=== PATIENT | female | born 1990 | race African-American/Black ===

== ENCOUNTER 2018-11-29 11:12 | Emergency (ER) | payer SELFPAY ==
--- NOTE | 2018-11-29 13:05 | EDPHYS ---
Physician Documentation [facility] Name: Alicia Torres Age: 28 yrs Sex: Female : 1990 Arrival Date: 11/29/2018 Time: 11:15 Bed 9 Private MD: ED Physician Higinio Finch HPI: 11/29 12:26 This 28 yrs old Black Female presents to ER via Ambulatory with complaints of Needs snw work release. 12:26 Onset: The symptoms/episode began/occurred suddenly, 4 day(s) ago, and improved. snw Associated signs and symptoms: The patient has no apparent associated signs or symptoms. Modifying factors: The patient symptoms are alleviated by rest, time. It is unknown whether or not the patient has had similar symptoms in the past. The patient has not recently seen a physician. pt request work excuse to return . 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 - Social history:: Smoking status: Patient/guardian denies using tobacco. - Ebola Screening: : No symptoms or risks identified at this time. ROS: 12:25 Constitutional: Negative for fever, chills, and weight loss, Eyes: Negative for injury, snw pain, redness, and discharge, Neck: Negative for injury, pain, and swelling, Cardiovascular: Negative for chest pain, palpitations, and edema, Respiratory: Negative for shortness of breath, cough, wheezing, and pleuritic chest pain, Abdomen/GI: Negative for abdominal pain, nausea, vomiting, diarrhea, and constipation, Back: Negative for injury and pain, : Negative for injury, bleeding, discharge, and swelling, MS/Extremity: Negative for injury and deformity, Skin: Negative for injury, rash, and discoloration, Neuro: Negative for headache, weakness, numbness, tingling, and seizure. 12:25 ENT: Positive for sore throat. Exam: 12:25 Constitutional: This is a well developed, well nourished patient who is awake, alert, snw and in no acute distress. Head/Face: Normocephalic, atraumatic. Eyes: Pupils equal round and reactive to light, extra-ocular motions intact. Lids and lashes normal. Conjunctiva and sclera are non-icteric and not injected. Cornea within normal limits. Periorbital areas with no swelling, redness, or edema. ENT: Nares patent. No nasal discharge, no septal abnormalities noted. Tympanic membranes are normal and external auditory canals are clear. Oropharynx with redness, no swelling, or masses, exudates, or evidence of obstruction, uvula midline. Mucous membranes moist. Neck: Trachea midline, no thyromegaly or masses palpated, and no cervical lymphadenopathy. Supple, full range of motion without nuchal rigidity, or vertebral point tenderness. No Meningismus. Chest/axilla: Normal chest wall appearance and motion. Nontender with no deformity. No lesions are appreciated. Cardiovascular: Regular rate and rhythm with a normal S1 and S2. No gallops, murmurs, or rubs. Normal PMI, no JVD. No pulse deficits. Respiratory: Lungs have equal breath sounds bilaterally, clear to auscultation and percussion. No rales, rhonchi or wheezes noted. No increased work of breathing, no retractions or nasal flaring. Abdomen/GI: Soft, non-tender, with normal bowel sounds. No distension or tympany. No guarding or rebound. No evidence of tenderness throughout. Back: No spinal tenderness. No costovertebral tenderness. Full range of motion. Skin: Warm, dry with normal turgor. Normal color with no rashes, no lesions, and no evidence of cellulitis. MS/ Extremity: Pulses equal, no cyanosis. Neurovascular intact. Full, normal range of motion. Neuro: Awake and alert, GCS 15, oriented to person, place, time, and situation. Cranial nerves II-XII grossly intact. Motor strength 5/5 in all extremities. Sensory grossly intact. Cerebellar exam normal. Normal gait. Psych: Awake, alert, with orientation to person, place and time. Behavior, mood, and affect are within normal limits. Vital Signs: 11:49 BP 99 / 63; Pulse 73; Resp 18; Temp 97.5; Pulse Ox 100% on R/A; Weight 53.52 kg; Height ph 5 ft. 3 in. (160.02 cm); Pain 0/10; 11:49 Body Mass Index 20.90 (53.52 kg, 160.02 cm) ph MDM: 11:48 Patient medically screened. snw 13:05 Data reviewed: vital signs, nurses notes. Data interpreted: Pulse oximetry: on room air snw is 100 %. Interpretation: normal. Counseling: I had a detailed discussion with the patient and/or guardian regarding: the historical points, exam findings, and any diagnostic results supporting the discharge/admit diagnosis, lab results, the need for outpatient follow up, to return to the emergency department if symptoms worsen or persist or if there are any questions or concerns that arise at home. Awaiting: strep screen result, pt needs to leave, results delayed. Will call pt if + for abx administration. 11/29 12:12 Order name: Strep snw Administered Medications: No medications were administered Disposition: 19:02 Co-signature as Attending Physician, Higinio Finch MD I agree with the assessment and kdr plan of care. Disposition: 11/29/18 13:04 Discharged to Home. Impression: Acute pharyngitis. - Condition is Stable. - Discharge Instructions: Pharyngitis, Rehydration, Adult. - Work release form, Medication Reconciliation Form, Thank You Letter, Antibiotic Education, Prescription Opioid Use form. - Follow up: Private Physician; When: 2 - 3 days; Reason: Recheck today's complaints, Continuance of care, Re-evaluation by your physician. Follow up: Emergency Department; When: As needed; Reason: Worsening of condition. Signatures: Dispatcher [employer] EDNY Higinio Finch MD MD [facility] Mary Jo Loya, ELECTRICIAN MARINE-C ELECTRICIAN MARINE-Chely Eng, RN RN Misty Cam RN RN ph Corrections: (The following items were deleted from the chart) 13:13 13:04 11/29/2018 13:04 Discharged to Home. Impression: Acute pharyngitis. Condition is iw Stable. Forms are Medication Reconciliation Form, Thank You Letter, Antibiotic Education, Prescription Opioid Use. Follow up: Private Physician; When: 2 - 3 days; Reason: Recheck today's complaints, Continuance of care, Re-evaluation by your physician. Follow up: Emergency Department; When: As needed; Reason: Worsening of condition. snw
--- NOTE | 2018-11-29 13:05 | ER ---
Nurse's Notes [facility] Name: Alicia Torres Age: 28 yrs Sex: Female : 1990 Arrival Date: 11/29/2018 Time: 11:15 Bed 9 Private MD: Diagnosis: Acute pharyngitis Presentation: 11/29 11:45 Presenting complaint: Patient states: Had strep over the weekend, I treated it myself ph at home and I'm feeling better, my job just wanted me to come get checked out.". Transition of care: patient was not received from another setting of care. Onset of symptoms was November 29, 2018. Risk Assessment: Do you want to hurt yourself or someone else? Patient reports no desire to harm self or others. Initial Sepsis Screen: Does the patient meet any 2 criteria? No. Patient's initial sepsis screen is negative. Does the patient have a suspected source of infection? No. Patient's initial sepsis screen is negative. Care prior to arrival: None. 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 - Social history:: Smoking status: Patient/guardian denies using tobacco. - Ebola Screening: : No symptoms or risks identified at this time. Screenin:13 Abuse screen: Denies threats or abuse. Denies injuries from another. Nutritional iw screening: No deficits noted. Tuberculosis screening: No symptoms or risk factors identified. Fall Risk None identified. Assessment: 11:50 General: Appears in no apparent distress. comfortable, slender, well groomed, Behavior ph is calm, cooperative, appropriate for age, Denies fever, feeling ill. Pain: Denies pain. Neuro: Level of Consciousness is awake, alert, obeys commands, Oriented to person, place, time, situation. Cardiovascular: Capillary refill < 3 seconds in bilateral fingers Patient's skin is warm and dry. Respiratory: Airway is patent Respiratory effort is even, unlabored. GI: No signs and/or symptoms were reported involving the gastrointestinal system. Derm: Skin is intact, is healthy with good turgor, Skin is pink, warm \\T\\ dry. Musculoskeletal: Circulation, motion, and sensation intact. Range of motion: intact in all extremities. Vital Signs: 11:49 BP 99 / 63; Pulse 73; Resp 18; Temp 97.5; Pulse Ox 100% on R/A; Weight 53.52 kg; Height ph 5 ft. 3 in. (160.02 cm); Pain 0/10; 11:49 Body Mass Index 20.90 (53.52 kg, 160.02 cm) ph ED Course: 11:15 Patient arrived in ED. as 11:28 Mary Jo Loya F[facility]-C [facility]. snw 11:28 Higinio Finch MD is Attending Physician. snw 11:32 Angelina Lujan, RN is Primary Nurse. aj 11:46 Triage completed. ph 11:50 Arm band placed on Patient placed in an exam room. ph 11:51 Misty Cam RN is Primary Nurse. ph 13:12 No provider procedures requiring assistance completed. Patient did not have IV access iw during this emergency room visit. 13:13 Patient has correct armband on for positive identification. iw Administered Medications: No medications were administered Outcome: 13:04 Discharge ordered by . snw 13:12 Discharged to home ambulatory, with family. iw 13:12 Condition: good 13:12 Discharge instructions given to patient, Instructed on discharge instructions, follow up and referral plans. Demonstrated understanding of instructions, follow-up care. 13:13 Patient left the ED. iw Signatures: Angelina Lujan, LIBERTAD RN Mary Jo Salgado FNP-C FNP-Deepthi Johns as Chely Salinas RN RN Misty Cam RN RN ph
== END 2018-11-29 13:13 | disposition home or self-care (01) ==
LOC: ER 11:12
DX: J02.9 Acute pharyngitis, unspecified (principal)
CPT/HCPCS: 87070; 87081; 99281

== ENCOUNTER 2019-01-03 17:33 | Emergency (ER) | payer SELFPAY ==
--- OUTSIDE RECORDS SUMMARY | 2019-01-03 17:36 | XMS REPORT ---
:1990 [facility] Address [address] [place] [address] [address] [place] [address] Care Team Providers Name Role Phone Unavailable Unavailable Unavailable Problems This patient has no known problems. Allergies, Adverse Reactions, Alerts This patient has no known allergies or adverse reactions. Medications This patient has no known medications.
--- NOTE | 2019-01-03 18:29 | RAD REPORT ---
EXAM DESCRIPTION: CT - Head Brain Wo Cont - 01/03/2019 6:03 pm CLINICAL HISTORY: Headache COMPARISON: None. TECHNIQUE: Computed axial tomography of the head was obtained. IV contrast was not requested. All CT scans are performed using dose optimization technique as appropriate and may include automated exposure control or mA/KV adjustment according to patient size. FINDINGS: An intracranial bleed is not seen . The ventricles are normal in caliber. No extra-axial fluid collection is noted. Fluid within the sinuses/ mastoids is not seen. IMPRESSION: No acute intracranial abnormality is seen. If patient's symptoms persist MRI of the bra in would be recommended.
[2019-01-03 18:31] LABS: Absolute Lymphocytes (CBC) 2.2 K/uL (0.7-4.9); Basophils % 0.4 % (0-1.3); Hematocrit 41.7 % (36.0-45.0); Lymphocytes % 25.2 % (15.3-44.8); MPV 9.1 fL (7.6-11.3); RBC Red Blood Cell Count 4.71 M/uL (3.86-4.86)
[2019-01-03] MEDS ORDERED: METOCLOPRAMIDE 10 MG/2mL INJ ONE (18:41)
[2019-01-03] MEDS ORDERED: DIPHENHYDRAMINE 50 MG/ML VIAL ONE (18:41)
[2019-01-03] MEDS ORDERED: NA CHLORIDE 0.9% 1,000 ML ONE (18:41)
[2019-01-03 18:45] LABS: ALT/SGPT 14 U/L (12-78); AST/SGOT 15 U/L (15-37); Albumin 3.9 g/dL (3.4-5.0); Alkaline Phosphatase 57 U/L (45-117); BUN Blood Urea Nitrogen 13 mg/dL (7-18); Bicarbonate 28 mmol/L (21-32); Bilirubin Total 0.5 mg/dL (0.2-1.0); Glucose Level 69 mg/dL (74-106); Potassium 3.6 mmol/L (3.5-5.1); Protein, Total 8.2 g/dL (6.4-8.2); Sodium Level 140 mmol/L (136-145)
[2019-01-03 18:55] LABS: Urine Blood NEGATIVE (NEG); Urine Glucose NEGATIVE (NEG); Urine Protein NEGATIVE (NEG)
--- NOTE | 2019-01-03 20:11 | RAD REPORT ---
EXAM DESCRIPTION: CTHead angio01/03/2019 7:45 pm CLINICAL HISTORY: TIA/headache COMPARISON: None TECHNIQUE: CT angiogram of the head was obtained. 3D MIPS reconstruction performed. All CT scans are performed using dose optimization technique as appropriate and may include automated exposure control or mA/KV adjustment according to patient size. FINDINGS: The basilar, internal carotid, anterior cerebral, middle cerebral and posterior cerebral a rteries are normal caliber. An aneurysm is not seen. origin right posterior cerebral artery A significant stenosis is not noted. IMPRESSION: Unremarkable CT angiogram head.
[2019-01-03] MEDS ORDERED: KETOROLAC 30 MG/ML INJ ONE (20:46)
[2019-01-03] MEDS ORDERED: dexAMETHasone 10 MG/ML VIAL ONE (20:46)
--- NOTE | 2019-01-03 21:09 | EDPHYS ---
Physician Documentation [facility] Name: Alicia Torres Age: 28 yrs Sex: Female : 1990 Arrival Date: 01/03/2019 Time: 17:35 Bed 13 Private MD: ED Physician Sridhar Angelo HPI: 01/03 17:44 This 28 yrs old Black Female presents to ER via Ambulatory with complaints of Body jmm Aches, Headache. 17:44 The patient complains of pain to the forehead and right uatsdin. Onset: The jmm symptoms/episode began/occurred gradually, 1 day(s) ago. Associated signs and symptoms: Pertinent negatives: fever, neck stiffness. This is a 28 year female with no chronic medical conditions that presents to the Ed with complaints of right sided headache which she awoke with yesterday. Patient states the pain has been constant. Patient is sensitive to light. Denies fever complains of body aches. . 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 - Social history:: Smoking status: Patient/guardian denies using tobacco. - Ebola Screening: : No symptoms or risks identified at this time. ROS: 17:44 Eyes: Negative for injury, pain, redness, and discharge, Cardiovascular: Negative for jmm chest pain, palpitations, and edema, Respiratory: Negative for shortness of breath, cough, wheezing, and pleuritic chest pain. 17:44 Abdomen/GI: Negative for abdominal pain, nausea, vomiting, diarrhea, and constipation, Back: Negative for injury and pain. 17:44 Constitutional: Positive for body aches, chills. 17:44 Neuro: Positive for headache. 17:44 All other systems are negative. Exam: 17:44 Constitutional: This is a well developed, well nourished patient who is awake, alert, jmm and in no acute distress. Head/Face: atraumatic. Eyes: EOMI, no conjunctival erythema appreciated ENT: Moist Mucus Membranes Neck: Trachea midline, Supple Chest/axilla: Normal chest wall appearance and motion. Cardiovascular: Regular rate and rhythm. No edema appreciated Respiratory: Normal respirations, no respiratory distress appreciated Abdomen/GI: Non distended, soft Back: Normal ROM Skin: General appearance color normal MS/ Extremity: Moves all extremities, no obvious deformities appreciated, no edema noted to the lower extremities Neuro: Awake and alert, normal gait Psych: Behavior is normal, Mood is normal, Patient is cooperative and pleasant Vital Signs: 17:42 BP 108 / 78; Pulse 82; Resp 16; Temp 98.4; Pulse Ox 98% on R/A; Weight 40.82 kg; Height la1 5 ft. 3 in. (160.02 cm); 18:40 BP 107 / 76; Pulse 52; Resp 15; Pulse Ox 98% on R/A; Pain 10/10; rb1 19:00 BP 112 / 74; Pulse 70; Resp 16; Pulse Ox 97% on R/A; jb4 21:00 BP 106 / 75; Pulse 72; Resp 16; Pulse Ox 100% on R/A; jb4 17:42 Body Mass Index 15.94 (40.82 kg, 160.02 cm) la1 MDM: 17:44 Patient medically screened. [facility] 20:34 Data reviewed: vital signs, nurses notes. [facility] 21:05 Data reviewed: lab test result(s), radiologic studies, CT scan. Counseling: I had a [facility] detailed discussion with the patient and/or guardian regarding: the historical points, exam findings, and any diagnostic results supporting the discharge/admit diagnosis, lab results, radiology results, the need for outpatient follow up, to return to the emergency department if symptoms worsen or persist or if there are any questions or concerns that arise at home. ED course: Patient is alert and non toxic in appearance. Headache is improved in the ED. CT imaging is negative. Patient's neck is supple. I do not suspect meningitis or SAH. Patient is advised to follow up with neuro for reevaluation of headaches. Patient is otherwise given strict return precautions. Patient understood and agrees with the plan of care. . 01/03 17:50 Order name: CBC with Diff; Complete Time: 18:50 [facility] 01/03 17:50 Order name: CMP; Complete Time: 18:50 [facility] 01/03 17:50 Order name: CT Head Brain wo Cont; Complete Time: 18:33 [facility] 01/03 18:52 Order name: Urine Dipstick--Ancillary (enter results); Complete Time: 18:57 01/03 18:52 Order name: Urine --Ancillary (enter results); Complete Time: 18:57 01/03 19:16 Order name: CT Head Angio; Complete Time: 20:18 [facility] 01/03 17:50 Order name: Saline Lock; Complete Time: 18:17 [facility] 01/03 17:50 Order name: Urine Dipstick-Ancillary (obtain specimen); Complete Time: 18:18 [facility] Administered Medications: 18:45 Drug: Reglan 10 mg Route: IVP; Site: left antecubital; rb1 21:58 Follow up: Response: No adverse reaction jb4 18:45 Drug: NS 0.9% 1000 ml Route: IV; Rate: 1 bolus; Site: left antecubital; rb1 18:45 Drug: diphenhydrAMINE 12.5 mg Route: IVP; Site: left antecubital; rb1 21:00 Follow up: Response: No adverse reaction jb4 21:13 Follow up: Response: No adverse reaction jb4 21:03 Drug: Ketorolac 30 mg Route: IVP; Site: left antecubital; jb4 21:13 Follow up: Response: No adverse reaction; Pain is decreased jb4 21:05 Drug: Decadron - Dexamethasone 10 mg Route: IVP; Site: left antecubital; jb4 21:13 Follow up: Response: No adverse reaction jb4 Disposition: 01/04 08:24 Co-signature as Attending Physician, Sridhar Angelo MD I agree with the assessment and marci plan of care. Disposition: 01/03/19 21:08 Discharged to Home. Impression: Headache. - Condition is Stable. - Discharge Instructions: Migraine Headache. - Medication Reconciliation Form, Thank You Letter, Antibiotic Education, Prescription Opioid Use form. - Follow up: Jerry Barth MD; When: 2 - 3 days; Reason: Recheck today's complaints, Continuance of care, Re-evaluation by your physician. Signatures: Dispatcher [employer] Sridhar Aguirre MD MD cha Mickail, Joel, PA PA Manolo Walters RN RN la1 Manisha Robin, RN RN rb1 Mustapha Wallace RN RN jb4 Corrections: (The following items were deleted from the chart) 01/03 21:59 21:01/03/2019 21:08 Discharged to Home. Impression: Headache. Condition is Stable. jb4 Forms are Medication Reconciliation Form, Thank You Letter, Antibiotic Education, Prescription Opioid Use. Follow up: Jerry Barth; When: 2 - 3 days; Reason: Recheck today's complaints, Continuance of care, Re-evaluation by your physician. gregg
--- NOTE | 2019-01-03 21:09 | ER ---
Nurse's Notes [facility] Name: Alicia Torres Age: 28 yrs Sex: Female : 1990 Arrival Date: 01/03/2019 Time: 17:35 Bed 13 Private MD: Diagnosis: Headache Presentation: 01/03 17:41 Presenting complaint: Patient states: FLYNN that started yesterday morning, worse with la1 bending forward or light. Transition of care: patient was not received from another setting of care. Onset of symptoms was January 03, 2019. Risk Assessment: Do you want to hurt yourself or someone else? Patient reports no desire to harm self or others. Initial Sepsis Screen: Does the patient meet any 2 criteria? No. Patient's initial sepsis screen is negative. Does the patient have a suspected source of infection? No. Patient's initial sepsis screen is negative. Care prior to arrival: None. 17:41 Method Of Arrival: Ambulatory la1 17:41 Acuity: SHEKHAR 3 la1 Triage Assessment: 17:45 Headache History: Denies prior headaches. 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 - Social history:: Smoking status: Patient/guardian denies using tobacco. - Ebola Screening: : No symptoms or risks identified at this time. Screenin:45 Abuse screen: Denies threats or abuse. Nutritional screening: No deficits noted. rb1 Tuberculosis screening: No symptoms or risk factors identified. Fall Risk None identified. Assessment: 17:45 General: Appears uncomfortable, Behavior is calm, cooperative, Denies fever. Pain: rb1 Complains of pain in forehead Pain currently is 10 out of 10 on a pain scale. Pain began 1 day ago. Neuro: Level of Consciousness is awake, alert, obeys commands, Oriented to person, place, time, situation. Neuro: Reports photophobia Denies Prior headache history. Cardiovascular: Capillary refill < 3 seconds is brisk in bilateral fingers. Respiratory: Airway is patent Respiratory effort is even, unlabored, Respiratory pattern is regular, symmetrical. GI: No signs and/or symptoms were reported involving the gastrointestinal system. : No signs and/or symptoms were reported regarding the genitourinary system. Derm: Skin is dry, Skin is normal, Skin temperature is warm. Musculoskeletal: Range of motion: intact in all extremities. 18:40 Reassessment: Patient appears in no apparent distress at this time. No changes from rb1 previously documented assessment. 19:00 Reassessment: Patient appears in no apparent distress at this time. Patient and/or jb4 family updated on plan of care and expected duration. Pain level reassessed. Patient is alert, oriented x 3, equal unlabored respirations, skin warm/dry/pink. 21:00 Reassessment: Patient appears in no apparent distress at this time. Patient and/or jb4 family updated on plan of care and expected duration. Pain level reassessed. Patient is alert, oriented x 3, equal unlabored respirations, skin warm/dry/pink. Patient states feeling better. 21:21 Reassessment: Patient appears in no apparent distress at this time. Patient and/or jb4 family updated on plan of care and expected duration. Pain level reassessed. Patient is alert, oriented x 3, equal unlabored respirations, skin warm/dry/pink. Pt verbalized understanding of d/c and follow up instructions. Reports decrease in pain. Waiting for her to pick her up prior to discharge. Vital Signs: 17:42 BP 108 / 78; Pulse 82; Resp 16; Temp 98.4; Pulse Ox 98% on R/A; Weight 40.82 kg; Height la1 5 ft. 3 in. (160.02 cm); 18:40 BP 107 / 76; Pulse 52; Resp 15; Pulse Ox 98% on R/A; Pain 10/10; rb1 19:00 BP 112 / 74; Pulse 70; Resp 16; Pulse Ox 97% on R/A; jb4 21:00 BP 106 / 75; Pulse 72; Resp 16; Pulse Ox 100% on R/A; jb4 17:42 Body Mass Index 15.94 (40.82 kg, 160.02 cm) la1 ED Course: 17:35 Patient arrived in ED. as 17:41 Triage completed. la1 17:42 Arm band placed on left wrist. la1 17:43 Saeed Everett PA is PHCP. [facility] 17:43 Sridhra Angelo MD is Attending Physician. [facility] 17:45 Patient has correct armband on for positive identification. Bed in low position. Call rb1 light in reach. Side rails up X 1. Pulse ox on. NIBP on. Warm blanket given. 17:58 Manisha Robin, LIBERTAD is Primary Nurse. rb1 18:03 CT Head Brain wo Cont In Process Unspecified. EDMS 18:17 Missed attempt(s): 22 gauge in right antecubital area. lt1 18:17 Initial lab(s) drawn, by me, sent to lab. Inserted saline lock: 22 gauge in left lt1 antecubital area, using aseptic technique. 19:00 Report given to LIBERTAD Campos. rb1 19:45 Note: [place] CT started a 22G to left bicep due to IV in right AC being non-diffusics.vm2 19:46 CT Head Angio In Process Unspecified. EDMS 19:47 CT completed. Patient tolerated procedure well. Patient moved back from CT. 2 21:08 Jerry Barth MD is Referral Physician. [facility] 21:58 No provider procedures requiring assistance completed. IV discontinued, intact, jb4 bleeding controlled, No redness/swelling at site. Pressure dressing applied. Administered Medications: 18:45 Drug: Reglan 10 mg Route: IVP; Site: left antecubital; rb1 21:58 Follow up: Response: No adverse reaction jb4 18:45 Drug: NS 0.9% 1000 ml Route: IV; Rate: 1 bolus; Site: left antecubital; rb1 18:45 Drug: diphenhydrAMINE 12.5 mg Route: IVP; Site: left antecubital; rb1 21:00 Follow up: Response: No adverse reaction jb4 21:13 Follow up: Response: No adverse reaction jb4 21:03 Drug: Ketorolac 30 mg Route: IVP; Site: left antecubital; jb4 21:13 Follow up: Response: No adverse reaction; Pain is decreased jb4 21:05 Drug: Decadron - Dexamethasone 10 mg Route: IVP; Site: left antecubital; jb4 21:13 Follow up: Response: No adverse reaction jb4 Outcome: 21:08 Discharge ordered by . [facility] 21:58 Discharged to home ambulatory, with family. jb4 21:58 Condition: stable 21:58 Discharge instructions given to patient, Instructed on discharge instructions, follow up and referral plans. Demonstrated understanding of instructions, follow-up care. 21:59 Patient left the ED. jb4 Signatures: Dispatcher [employer] EDMS Saeed Everett PA PA jmm Martinez, Amelia as Attema, Lee RN RN la1 Manisha Robin RN RN rb1 Mustapha Wallace RN RN jb4 Melani Tong [address] [facility]
== END 2019-01-03 21:59 | disposition home or self-care (01) ==
LOC: ER 17:33
DX: R51 Headache (principal); Z88.0 Allergy status to penicillin
CPT/HCPCS: 36415; 70450; 70496; 80053; 81003; 81025; 85025; 96374; 96375; 99284; J1100; J2765; J7030; Q9967